=== PATIENT | female | born 1980 | race Caucasian/White ===

== ENCOUNTER 2017-10-18 10:01 | Inpatient (IN) | payer OTHER ==
--- NOTE | 2017-10-18 11:01 | HP ---
General Information - General Information Maternal Age: 37 Grav: 10 Para: 5 SAB: 1 IEA: 4 Estimated Due Date: 10/17/17 Determined By: LMP Gestational Age in Weeks and Days: 40 Weeks and 1 Days Maternal Blood Type and Rh: B Negative - Results this Serology/RPR Result: Non-Reactive Rubella Result: Immune HBsAg Result: Negative HIV Result: Negative GBS Culture Result: Negative Past Medical History Delivery History: Hx Uncomplicated Vaginal Delivery Delivery History Comment: [id number] Pertinent Past Medical History: Non-Contributory Pertinent Past Surgical History: See Records Past Surgical History Comment: D&C 2005 [place] teeth 1997 Pertinent Family History: See Records Family History Comment: Maternal fam hx breast CA - Antepartal Records Antepartal Records: Reviewed, Uncomplicated Review of Systems Constitutional: Uncomfortable CV Complaint: No Respiratory: Shortness of Breath: No Gastrointestinal: Normal Bowel Movement - Looser today Genitourinary: No Dysuria, No Bleeding, No Leaking Fluid Musculoskeletal: Contractions Neurological: No Headache, No Visual Changes Movement: Normal Exam Allergies/Adverse Reactions: Allergies No Known Allergies Allergy (Verified 03/05/14 00:32) BP 120/84 T 98.1 HR 85 RR 20 02 100 - Measurements Height: 5 ft 3.5 in Weight: 140 lb Weight in lbs: 140 Body Mass Index (BMI): 24.4 Pre- Weight: 123 lb Weight Gained This : 17 lbs and 0 ozs - Exam Abdomen: No Upper Quadrant Pain Breast: Breast Exam Deferred CVA: No CVA Tenderness Extremities: No Edema Heart: Normal Rhythm/Heart Sounds HEENT: No Significant Findings Lungs: Clear Bilaterally Rectal: Rectal Exam Deferred Reflexes: DTR 2+ Thyroid: - - WNL @ entry to care - Cervical Exam 5-6//vertex -1 - Abdominal Exam Abdomen Exam: Non-Tender, Fundal Height Consistent with Dates Abdomen Exam Comment: EFW 7.5lb - Ultrasound/Biophysical Profile Ultrasound Status: Not Done EFM Findings - External Monitor Findings Baseline Heart Rate: 125 External Monitor Findings: Accelerations Present, No Pattern of Variable or Late Decelerations, Variability Moderate Contractions: Irregular, Moderate, 45-90 Seconds Contraction Frequency: Q5-8 min Assessment/Plan - Reason for Visit Reason for Visit: IUP @ 40+1 wks gestation in labor. IBOW. No evidence metabolic acidemia. - Plan Plan: Active Labor - Admit, pt does not desire pain medication, declines AROM for augmentation. Anticipate SVB. - Date/Time of Admission Date of Admission: 10/18/17 Time of Admission: 10:25
[2017-10-18] MEDS ORDERED: Ibuprofen TAB* 600 MG PO PRN (11:57)
[2017-10-18] MEDS ORDERED: Acetaminophen TAB* 325 MG PO PRN (11:57)
[2017-10-18] MEDS ORDERED: Dibucaine 1% 28.35 GM TUBE PR PRN (11:57)
[2017-10-18] MEDS ORDERED: Glycerin ADULT SUPP PR PRN (11:57)
[2017-10-18] MEDS ORDERED: RHO D Immune Globulin (HUMAN)* 300 MCG = 1,500 I.U. INJ IM ONE (11:57)
[2017-10-18] MEDS ORDERED: Simethicone TAB* 80 MG TAB.CHEW PO SCH (12:30)
[2017-10-18] MEDS: Witch Hazel PAD* JAR TOPICAL PRN (14:50)
[2017-10-18] MEDS: Docusate CAP* 100 MG PO SCH ×2 (14:50→21:00)
[2017-10-19 07:35] LABS: ABS Basophils 0 10^3/ul (0-0.2); ABS Eosinophils 0.1 10^3/ul (0-0.6); ABS Lymphocytes 1.8 10^3/ul (1.0-4.8); ABS Monocytes 0.7 10^3/ul (0-0.8); ABS Neutrophils 8.9 10^3/ul (1.5-7.7); ABS Nucleated RBC 0 10^3/ul; Eosinophil % 0.8 % (0-6); Hematocrit 35 % (35-47); Hemoglobin 12.1 g/dl (12.0-16.0); Mean Corpuscular HGB Conc 35 g/dl (31-36); Mean Corpuscular Hemoglobin 32 pg (27-31); Mean Corpuscular Volume 91 fL (80-97); Nucleated Red Blood Cells % 0; Platelet Count 215 10^3/ul (150-450); Red Blood Count 3.82 10^6/ul (4.0-5.4); Red Cell Distribution Width 13 % (10.5-15); White Blood Count 11.5 10^3/ul (3.5-10.8)
[2017-10-19] MEDS: Docusate CAP* 100 MG PO SCH ×3 (08:24→20:55)
[2017-10-19] MEDS ORDERED: Ferrous Gluconate TAB* 324 MG TAB PO SCH (09:00)
[2017-10-19] MEDS: Witch Hazel PAD* JAR TOPICAL PRN (19:57)
[2017-10-20 08:44] VITALS: BP 102/58
[2017-10-20] MEDS: Docusate CAP* 100 MG PO SCH (08:46)
== END 2017-10-20 13:18 | disposition home or self-care (01) | DRG 560 ==
LOC: MCHOBOUT 10:01 → MCHOB 10:25
PROVIDERS: ADMIT Midwife; ATTEND Midwife
PROC: 10E0XZZ Delivery of Products of Conception, External Approach (ICD-10-PCS; principal; 2017-10-18)
PROC: 4A1HXCZ Monitoring of Products of Conception, Cardiac Rate, External Approach (ICD-10-PCS; 2017-10-18)
DX: O48.0 Post-term pregnancy (principal); Z80.3 Family history of malignant neoplasm of breast; Z3A.40 40 weeks gestation of pregnancy; Z37.0 Single live birth
CPT/HCPCS: 36415; 85025; 85461; 86900; 86901; A9270-GY; J2790